=== PATIENT | male | born 1995 | race African-American/Black ===

== ENCOUNTER 2016-10-16 12:48 | Emergency (ER) | payer MEDICAID, OTHER ==
[~2016-10-16] VITALS: Ht 188 cm; Wt 76.0 kg
[~2016-10-16 12:48] MED LIST: DICL50TA3 PO; METH750T2 PO
[2016-10-16 12:50] VITALS: BP 132/68; PULSE 78; RESP 18; TEMP 97.9; O2SAT 100
--- NOTE | 2016-10-16 14:28 | PD ---
HPI . Left flank pain Chief Complaint: Flank/Kidney Pain Time Seen by Provider: 14:13 Travel History International Travel<30 days: No Contact w/Intl Traveler<30days: No Traveled to known affect area: No History of Present Illness HPI Patient presents with the chief complaint of left flank pain. He states that it has been present for over a month. It has waxed and waned and come and gone. He states that it is getting progressively worse. He describes a sharp pain which is exacerbated by movement. He rates his pain as 9/10. It all started after he inadvertently did the splits. He believes that he injured a testicle when he did the splits. He states that he does not know which testicle he may have injured but that palpation of his testicles causes exacerbation of the pain in the left flank. Therefore, he presumes that the 2 are related. The patient denies any urinary symptoms such as dysuria, frequency , urgency or hematuria. He denies any vomiting. He denies any fever. PFSH Past Medical History Developmental Delay: No Social History Alcohol Use: Yes Tobacco Use: No Substance Use: No Allergies-Medications (Allergen,Severity, Reaction): Coded Allergies: No Known Allergies (Verified , 10/16/16) Reported Meds & Prescriptions Reported Meds & Active Scripts Active No Active Prescriptions or Reported Medications Review of Systems Except as stated in HPI: all other systems reviewed are Neg General / Constitutional: No: Fever, Chills Gastrointestinal: No: Nausea, Vomiting, Diarrhea, Abdominal Pain Genitourinary: Positive: Flank Pain, No: Urgency, Frequency, Dysuria, Hematuria Physical Exam Narrative GENERAL: Patient ambulates to the room without difficulty. He is in no acute distress. SKIN: Warm and dry. HEAD: Atraumatic. Normocephalic. EYES: Pupils equal and round. Extraocular movements intact. ENT: No nasal bleeding or discharge. Mucous membranes pink and moist. NECK: Trachea midline. Neck supple. CARDIOVASCULAR: Regular rate and rhythm. RESPIRATORY: No accessory muscle use. GASTROINTESTINAL: Abdomen soft, non-tender, nondistended. No CVA tenderness. : Normal circumcised male. There is no penile discharge. There is no testicular tenderness or swelling. There is no epididymal tenderness or swelling. MUSCULOSKELETAL: No obvious deformities. No edema. NEUROLOGICAL: Awake and alert. No obvious cranial nerve deficits. Motor grossly within normal limits. Normal speech. PSYCHIATRIC: Appropriate mood and affect; insight and judgment normal. Data Data Last Documented VS Vital Signs Date Time Temp Pulse Resp B/P Pulse Ox O2 Delivery O2 Flow Rate FiO2 10/16/16 15:08 76 16 128/68 100 10/16/16 12:50 97.9 Room Air Orders Urinalysis - C+S If Indicated (10/16/16 14:18) Gc And Chlamydia Pcr (10/16/16 14:18) Ct Abd/Pel W/O Iv Contrast (10/16/16 14:18) Ondansetron Odt (Zofran Odt) (10/16/16 14:30) Hydromorphone Pf Inj (Dilaudid Pf Inj) (10/16/16 14:30) Labs Laboratory Tests Test 10/16/16 14:25 Urine Color YELLOW Urine Turbidity CLEAR Urine pH 7.0 Urine Specific [place] 1.019 Urine Protein NEG mg/dL Urine Glucose (UA) NEG mg/dL Urine Ketones NEG mg/dL Urine Occult Blood NEG Urine Nitrite NEG Urine Bilirubin NEG Urine Urobilinogen LESS THAN 2.0 MG/DL Urine Leukocyte Esterase NEG Urine RBC LESS THAN 1 /hpf Urine WBC LESS THAN 1 /hpf Microscopic Urinalysis Comment CULT NOT INDICATED MDM Medical Decision Making Medical Screen Exam Complete: Yes Emergency Medical Condition: Yes Differential Diagnosis Differential diagnosis of flank pain includes but is not limited to kidney stone , pyelonephritis, musculoskeletal pain, PE Narrative Course Patient presents with left flank pain which has been present for more than a month. His physical exam is unremarkable. I suspect musculoskeletal back pain. Laboratory Tests Test 10/16/16 14:25 Urine Color YELLOW Urine Turbidity CLEAR Urine pH 7.0 Urine Specific [place] 1.019 Urine Protein NEG mg/dL Urine Glucose (UA) NEG mg/dL Urine Ketones NEG mg/dL Urine Occult Blood NEG Urine Nitrite NEG Urine Bilirubin NEG Urine Urobilinogen LESS THAN 2.0 MG/DL Urine Leukocyte Esterase NEG Urine RBC LESS THAN 1 /hpf Urine WBC LESS THAN 1 /hpf Microscopic Urinalysis Comment CULT NOT INDICATED CT>>No acute finding is identified within the abdomen or pelvis on this noncontrast examination. Emergency Department evaluation reveals no emergency medical condition. The patient is stable for discharge to home. Diagnosis Primary Impression: Left flank pain Patient Instructions: Flank Pain (ED), General Instructions Med/Other Pt SpecificInfo: Prescription(s) given Scripts Cyclobenzaprine (Flexeril)10 Mg Tab10 Mg PO TID #30 TAB Ref 0 Prov:Stephany Lewis MD 10/16/16 Ibuprofen 800 Mg [id number] Mg PO Q8H PRN (Pain/Inflammation) #60 TAB Ref 0 Prov:Stephany Lewis MD 10/16/16 Disposition: 01 DISCHARGE HOME Condition: Stable Stephayn Lewis MD Oct 16, 2016 14:28
[2016-10-16] MEDS ORDERED: ONDANSETRON ODT 4 MG TAB PO/SL ONE (14:30)
[2016-10-16] MEDS ORDERED: HYDROmorphone HCL PF 2 MG/ML VIAL IM ONE (14:30)
[2016-10-16 14:59] LABS: BLOOD, URINE NEG (NEG); COMMENT (UR) CULT NOT INDICATED; CULTURE IF INDICATED CULT NOT INDICATED; GLUCOSE,URINE NEG (NEG); KETONE, URINE NEG (NEG); NITRITE,URINE NEG (NEG); URINE COLOR YELLOW (YELLW/STRAW)
[2016-10-16 15:08] VITALS: BP 128/68; PULSE 76; RESP 16; O2SAT 100
--- NOTE | 2016-10-16 16:00 | RADRPT ---
EXAM DATE/TIME: 10/16/2016 15:26 [facility] COMPARISON: No previous studies available for comparison. INDICATIONS : Left lower back pain for one month status post injury. ORAL CONTRAST: No oral contrast ingested. RADIATION DOSE: 4.83 CTDIvol (mGy) MEDICAL HISTORY : None SURGICAL HISTORY : None. ENCOUNTER: Initial ACUITY: 1 month PAIN SCALE: 8/10 LOCATION: Left flank and testicular pain TECHNIQUE: Volumetric scanning of the abdomen and pelvis was performed. Using automated exposure control and ad justment of the mA and/or kV according to patient size, radiation dose was kept as low as reasonably achievable to obtain optimal diagnostic quality images. FINDINGS: There is streak artifact related to a metallic structure adjacent to the left side of the patient. LOWER LUNGS: The visualized lower lungs are clear. LIVER: Homogeneous density without lesion. There is no dilation of the biliary tree. No calcified gallston es. SPLEEN: Normal size without lesion. PANCREAS: Within normal limits. KIDNEYS: Normal in size and shape. There is no mass, stone, or hydronephrosis. ADRENAL GLANDS: Within normal limits. VASCULAR: There is no aortic aneurysm. BOWEL/MESENTERY: The stomach, small bowel, and colon demonstrate no acute abnormality. There is no free intraperitone al air or fluid. Appendix is normal. ABDOMINAL WALL: Within normal limits. RETROPERITONEUM: There is no lymphadenopathy. BLADDER: No wall thickening or mass. REPRODUCTIVE: Within normal limits. INGUINAL: There is no lymphadenopathy or hernia. MUSCULOSKELETAL: Within normal limits for patient age. CONCLUSION: No acute finding is identified within the abdomen or pelvis on this noncontrast examination. Geoff Wright MD on October 16, 2016 at 15:55 Board Certified Radiologist. This report was verified electronically.
[2016-10-16] MEDS ORDERED: CYCL1TAB29 PO (16:07)
[2016-10-16] MEDS ORDERED: IBUP800T23 PO (16:07)
[2016-10-16 17:58] LABS: CHLAMYDIA PCR NOT DETECTED (NOT DETECT); NEISSERIA PCR NOT DETECTED (NOT DETECT)
== END 2016-10-16 16:24 | disposition home or self-care (01) ==
LOC: NEPD 12:48
DX: R10.9 Unspecified abdominal pain (principal)
CPT/HCPCS: 74176; 81001; 87491; 87591; 96372; 99285; J1170